=== PATIENT | female | born 1945 ===

== ENCOUNTER 2018-05-31 10:01 | Day surgery (SDC) | payer OTHER ==
[~2018-05-31] VITALS: Ht 167.6 cm; Wt 55.9 kg
[2018-05-31] MEDS ORDERED: Ventolin/Prove6.7 GM INH (10:44)
[2018-05-31] MEDS ORDERED: TIOT18 INH (10:44)
[2018-05-31] MEDS ORDERED: Advair Hfa 230-12 GM (10:44)
[2018-05-31] MEDS ORDERED: Omeprazole20 M1 (10:45)
[2018-05-31] MEDS ORDERED: LOSA50 PO (10:45)
[2018-05-31] MEDS ORDERED: MONT10T PO (10:45)
[2018-05-31] MEDS ORDERED: DOXE10 PO (10:45)
[2018-05-31] MEDS ORDERED: Depo-Medro80 MG/1 ML INJ (10:46)
== END 2018-05-31 13:33 | disposition home or self-care (01) ==
LOC: ORSCSDS 10:01
PROVIDERS: Student in an Organized Health Care Education/Training Program
PROC: 0DB58ZX Excision of Esophagus, Via Natural or Artificial Opening Endoscopic, Diagnostic (ICD-10-PCS; principal; 2018-05-31 11:15)
DX: K21.9 Gastro-esophageal reflux disease without esophagitis (principal); B37.81 Candidal esophagitis; K44.9 Diaphragmatic hernia without obstruction or gangrene; I10 Essential (primary) hypertension; Z87.891 Personal history of nicotine dependence; J44.9 Chronic obstructive pulmonary disease, unspecified; Z79.899 Other long term (current) drug therapy
CPT/HCPCS: 88305; 88312; J7120

== ENCOUNTER → 2022-10-10 | Outpatient (CLI) | payer OTHER ==
[~2022-10-10] MED LIST: Advair Hfa 230-12 GM; DOXE10 PO; Depo-Medro80 MG/1 ML INJ; LOSA50 PO; MONT10T PO; Omeprazole20 M1; TIOT18 INH; Ventolin/Prove6.7 GM INH
== END | disposition home or self-care (01) ==
LOC: LAB 10:51 → LAB SHORT 10:51
DX: Z48.02 Encounter for removal of sutures (principal); L08.9 Local infection of the skin and subcutaneous tissue, unspecified
CPT/HCPCS: 87070; 87205